=== PATIENT | female | born 2000 | race Caucasian/White ===

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

== ENCOUNTER 2022-03-09 09:54 | Emergency (ER) | payer BC, MEDICAID, SELFPAY ==
[2022-03-09 10:01] VITALS: BP 133/70; PULSE 94; RESP 18; TEMP 36.8; O2SAT 98; BMI 29.0
--- NOTE | 2022-03-09 10:58 | CTR_ITS ---
PROCEDURE INFORMATION: Exam: CT Head Without Contrast Exam date and time: 03/09/2022 11:27 AM Age: 21 years old Clinical indication: Visual disturbance; Additional info: Right sided face and extremities numbness and weakness TECHNIQUE: Imaging protocol: Computed tomography of the head without contrast. Radiation optimization: All CT scans at this facility use at least one of these dose optimization techniques: automated exposure control; mA and/or kV adjustment per patient size (includes targeted exams where dose is matched to clinical indication); or iterative reconstruction. COMPARISON: CT head wo con* [id number] 05/28/2019 11:18 PM RADIATION DOSE METRICS: Total DLP (mGy-cm): 789.73 FINDINGS: Brain: No CT evidence of acute intracranial hemorrhage or acute territorial infarction. No significant mass effect or midline shift. Basal cisterns patent. Cerebral ventricles: Normal in size and configuration. Paranasal sinuses: Minimal ethmoid mucosal thickening. No air-fluid levels. Mastoid air cells: Grossly unremarkable. Bones/joints: No acute osseous abnormality. Soft tissues: Grossly unremarkable. CT/CT head wo con* [id number]: 1[address] No CT evidence of acute intracranial pathology. 2. Additional findings, as above.
--- NOTE | 2022-03-09 10:58 | XR_ITS ---
WS: [id number] Portable AP upright chest, 03/09/2022 Clinical Data: chest tightness on right side w/ inspiration Comparison: PA and lateral chest, 11/04/2008. Findings: No nodules, masses or effusions are seen. The heart is normal. The pulmonary vascularity is not increased. No pneumonia or pneumothorax is seen. XR/XR chest 1V portable [id number] Impression: Negative chest.
--- NOTE | 2022-03-09 10:58 | ECG_ITS ---
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 Measurements Intervals [place] Rate: 59 P: 14 TN: 142 QRS: 20 QRSD: 120 T: 21 QT: 404 QTc: 401 Interpretive Statements SINUS BRADYCARDIA WITH SINUS ARRHYTHMIA POSSIBLE RIGHT VENTRICULAR CONDUCTION DELAY [RSR (QR) IN V1/V2] No previous ECG available for comparison Electronically Signed On 03-09-2022 18:18:27 CDT by Cristal Lee M.D. [email or web address].[facility] [email or web address] regional medical [email or web address]'s hospital [id number]
--- NOTE | 2022-03-09 11:05 | W.ED.WEAKNES ---
HPI - Weakness General: Chief complaint: Weakness Stated complaint: RT side numbness and head foggyness Time Seen by Provider: 03/09/22 10:10 History of Present Illness: Patient is a 21-year-old female comes to the ED with right sided numbness/weakness and mental fog. Past medical history of PCOS, anxiety and had a seriousconcussion 3 years ago. symptoms started around 9 AM on Saturday morning. She is currently a little over 48 hours into her onset of symptoms. She initially noticed the right side of her face feeling a little numb and then later she developed a mild headache in the back of her head. She then started noticing her right arm had some numbness to it along with weakness in her right leg and right arm. Symptoms have continued and patient still feeling symptoms here in the ED. She also reports having some mental fog which she describes as forgetfulness or occasional mild confusion (example?processing verbal instructions). Endorses a little bit of dizziness. She does states she has had a decreased food and fluid intake over the past 2 days since onset of symptoms because she is been anxious about her health. Associated symptoms: Reports confusion and headache(s) (Resolved before coming to ED); Denies chest pain, chills, dysuria, fever(s), nausea or vomiting Review of Systems Const: Denies: fever(s), chills or fatigue Eyes: Denies: change in vision or eye discomfort ENMT: Denies: throat pain, odynophagia, nasal discharge or nasal congestion Card: Denies: chest pain, palpitations, edema, swelling of feet/ankles, dyspnea on exertion or orthopnea Resp: Denies: dyspnea, productive cough or non-productive cough GI: Denies: abdominal pain, nausea, vomiting, diarrhea, constipation or hematochezia : Denies: flank pain, dysuria or hematuria Musc: Denies: neck pain, back pain or extremity swelling Skin/Breast: Denies: rash or new lesions Neuro: Reports: headache(s) (Resolved before coming to ED), numbness in extremities (Right upper and lower extremities), weakness in extremities (Right upper and lower extremities), dizziness (Episodes) and confusion PFS ED PFSH: Medical History Acute anxiety Depression Migraine with aura No pertinent past medical history neghx: htn,dm,thyroid,dvt/pe PCP: Dr. Cunha PCOS (polycystic ovarian syndrome) Surgical History History of tonsillectomy Hx laparoscopic cholecystectomy [place] teeth extracted Family History Mother PCOS (polycystic ovarian syndrome) Thyroid disease Father No problems noted. Brother No problems noted. Grandmother Uterine cancer Maternal--dx age unknown Diabetes Maternal Hypertension Maternal PCOS (polycystic ovarian syndrome) Maternal Grandfather Hypertension Maternal Denies family history of Colon cancer Ovarian cancer Breast cancer Female Reproductive History: Date of last menstrual period: 02/23/22 Physical Exam Narrative: EXAM NARRATIVE: Patient is a happy and healthy 21-year-old female that appears in no acute distress or pain. Const: COMMON NORMALS: no acute distress, patient oriented x3, healthy appearing and alert GENERAL APPEARANCE: cooperative and comfortable HENMT: COMMON NORMALS: normocephalic HEAD & SCALP: normocephalic MOUTH: Normal oral and palatal mucosa present THROAT: posterior oropharynx normal and uvula midline Neck/C-Spine: COMMON NORMALS: supple GENERAL: Yes normal visual inspection Resp: COMMON NORMALS: normal respiratory effort, No retractions, No use of accessory muscles and clear to auscultation bilaterally AUSCULTATION: clear to auscultation bilaterally Cardio: COMMON NORMALS: regular rate, regular rhythm, S1 normal heart sound present, S2 normal heart sound present, No gallops present (Cardio), No clicks present (Cardio), No murmurs present (Cardio) and Peripheral pulses 2+ throughout RATE: regular rate RHYTHM: regular rhythm HEART SOUNDS: S1 normal heart sound present and S2 normal heart sound present PERIPHERAL PULSES: Peripheral pulses 2+ throughout GI: COMMON NORMALS: Normal to inspection, nondistended, normoactive bowel sounds present, Soft to palpation, non-tender and no masses PALPATION: Yes Soft to palpation : COMMON NORMALS: Yes no CVA tenderness BLADDER/KIDNEY EXAM: Yes no CVA tenderness Back/Pelvis: COMMON NORMALS: no CVA tenderness Extremity: COMMON NORMALS: normal to inspection Neuro: COMMON NORMALS: patient oriented x3, CN's II-XII intact bilaterally, moves all extremities, no focal motor deficits and no sensory deficits noted SENSORIUM/ORIENTATION: Yes alert COORDINATION/BALANCE: [id number] test normal SPEECH: speech normal GAIT: Yes Normal gait present SENSORY EXAM: Yes extremities (intact) MOTOR EXAM: 5/5 motor strength present throughout and Pronator motor function not present COORDINATION: [id number] test normal Skin: GENERAL SKIN EXAM: dry skin Course Vital Signs: Vital signs: Vital Signs Temperature 98.2 F 03/09/22 10:01 Pulse Rate 70 03/09/22 13:56 Respiratory Rate 14 03/09/22 13:56 Blood Pressure 115/61 03/09/22 13:56 Pulse Oximetry 100 03/09/22 13:56 MDM - Weakness Medical Decision Making Patient is a 21-year-old female comes to the ED with right-sided tingling/numbness in face, arm and leg. She reports that her right leg and right arm feel weak. Patient endorses having anxiety and says she has been stressed a lot about her symptoms. Symptoms started approximately a little over 48 hours ago. Vitals are stable. Patient is a happy and healthy 21 female appears in no acute distress pain. Her neuro exam is completely normal rest of exam is benign. Labs were unremarkable. EKG showed no acute findings. Chest x-ray showed no acute findings. CT of head showed no acute findings. Patient appears healthy and stable for discharge home. She was told to follow-up with her primary care doctor within the next week for reevaluation. Return to ED precautions given. Patient stood agree with plan. Lab Data I reviewed the patient's lab results. : 03/09/22 11:11 03/09/22 11:11 Radiology Impressions Chest X-Ray 03/09/22 10:58 Impression: Negative chest. Head CT 03/09/22 10:58 IMPRESSION: 1. No CT evidence of acute intracranial pathology. 2. Additional findings, as above. Laboratory Results WBC 7.0 10^3/uL (4.5-13.0) 03/09/22 11:11 RBC 4.67 10^6/uL (4.1-5.3) 03/09/22 11:11 Hgb 13.7 g/dL (11.5-15.3) 03/09/22 11:11 Hct 41.5 % (37.0-47.0) 03/09/22 11:11 MCV 88.9 fl (81-99) 03/09/22 11:11 MCH 29.3 pg (28.0-34.0) 03/09/22 11:11 MCHC 33.0 g/dL (30.0-36.0) 03/09/22 11:11 RDW 12.2 % (12.1-15.1) 03/09/22 11:11 Plt Count 293 10^3/cmm (130-400) 03/09/22 11:11 MPV 10.3 fL (7.4-10.4) 03/09/22 11:11 Neut % (Auto) 65.4 % 03/09/22 11:11 Lymph % (Auto) 24.3 % 03/09/22 11:11 [place] % (Auto) 8.9 % 03/09/22 11:11 Eos % (Auto) 0.7 % 03/09/22 11:11 Baso % (Auto) 0.4 % 03/09/22 11:11 Neut # (Auto) 4.55 10^3/uL (1.8-8.0) 03/09/22 11:11 Lymph # (Auto) 1.7 10^3/uL (1.5-6.5) 03/09/22 11:11 [place] # (Auto) 0.6 10^3/uL (0.2-0.9) 03/09/22 11:11 Eos # (Auto) 0.1 10^3/uL (0.0-0.8) 03/09/22 11:11 Baso # (Auto) 0.0 10^3/uL (0.0-0.1) 03/09/22 11:11 Nucleated RBC % (auto) 0 % 03/09/22 11:11 Nucleated RBCs # 0.0 /100WBC 03/09/22 11:11 Sodium 139 mmol/L (136-145) 03/09/22 11:11 Potassium 4.0 mmol/L (3.5-5.1) 03/09/22 11:11 Chloride 108 mmol/L (98-107) H 03/09/22 11:11 Carbon Dioxide 20 mmol/L (22-29) L 03/09/22 11:11 Anion Gap 15.0 (5-19) 03/09/22 11:11 BUN 12 mg/dL (6-20) 03/09/22 11:11 Creatinine 0.8 mg/dL (0.5-0.9) 03/09/22 11:11 GFR Calculation 92.4 mL/min (90-130) 03/09/22 11:11 Glucose 108 mg/dL (65-115) 03/09/22 11:11 Calculated Osmolality 288 mOsm/kg (285-295) 03/09/22 11:11 Calcium 8.9 mg/dL (8.5-10.5) 03/09/22 11:11 Total Bilirubin 0.2 mg/dL (0.15-1.2) 03/09/22 11:11 AST 12 U/L (0-32) 03/09/22 11:11 ALT 18 U/L (0-33) 03/09/22 11:11 Alkaline Phosphatase 96 IU/L (35-105) 03/09/22 11:11 Total Protein 6.9 g/dL (6.6-8.7) 03/09/22 11:11 Albumin 4.6 g/dL (3.5-5.2) 03/09/22 11:11 Globulin 2.3 g/dL (1.3-4.6) 03/09/22 11:11 HCG, Qual Negative (Negative) 03/09/22 11:11 Urine Color Yellow (Yellow) 03/09/22 10:37 Urine Appearance Clear (CLEAR) 03/09/22 10:37 Urine pH 6 (5-7) 03/09/22 10:37 Ur Specific [place] 1.015 (1.005-1.030) 03/09/22 10:37 Urine Protein Neg (Negative) 03/09/22 10:37 Urine Glucose (UA) Norm (Normal) 03/09/22 10:37 Urine Ketones Negative (Negative) 03/09/22 10:37 Urine Blood 2+ (Negative) H 03/09/22 10:37 Urine Nitrate Negative (Negative) 03/09/22 10:37 Urine Bilirubin Neg (Negative) 03/09/22 10:37 Urine Urobilinogen Norm mg/dL (Negative) 03/09/22 10:37 Ur Leukocyte Esterase Negative (Negative) 03/09/22 10:37 Urine RBC 0-4 /hpf (0-2) H 03/09/22 10:37 Urine WBC 0-4 /hpf (0-5) H 03/09/22 10:37 Ur Squamous Epith Cells 0-4 /hpf (0-5) H 03/09/22 10:37 Amorphous Sediment Not Reportable 03/09/22 10:37 Urine Bacteria 1+ /hpf (NONE) H 03/09/22 10:37 EKG Data EKG 1: Interpretation: [place] [address] Electrocardiograph Report Signed Patient: Aysha Mcgee Unit #: [id number] : 2000 Age/Sex: 21 / F ADM Date: 03/09/22 Loc: ER Room/Bed: Attending Dr: Ordering Provider/Ordering MD: Quintin Luong Date of Service: 03/09/22 Procedure(s): ECG 12 lead EKG Accession Number(s): [id number] Report Number: [id number] ? [facility] ? Test Date:? ? 2022-03-09 Pat Name: ? ? Aysha Mcgee ? Department: ? Patient ID: ? [id number] ? Room: ? Gender: ? ? ? Female ? [employer]: ? :? 2000 ? Requested By: Quintin Luong Order Number: [id number]? Reading : ? Cristal Lee M.D. ? Measurements Intervals? [place]? Rate: ? 59 ? P:? 14 FL: ? 142? QRS:? 20 QRSD: ? 120? T:? 21 QT: ? 404? QTc:? 401? Interpretive Statements SINUS BRADYCARDIA WITH SINUS ARRHYTHMIA POSSIBLE RIGHT VENTRICULAR CONDUCTION DELAY? [RSR (QR) IN V1/V2] No previous ECG available for comparison Electronically Signed On 03-09-2022 18:18:27 CDT by Cristal Lee M.D. [email or web address] Dictated By: Cristal Lee MD Signed By: Cristal Lee MD Signed Date/Time: 03/09/2022 DD/ [id number] Discharge Plan Discharge Patient Disposition: Home Clinical Impression: Numbness, Normal neurological exam Condition: Stable Prescriptions: No Action spironolactone 25 mg tablet 25 mg PO QAM 0RF ibuprofen 800 mg tablet 800 mg PO Q8H PRN (Reason: pain) Qty: 30 1RF Vitamin C 500 mg Tablet 500 mg PO DAILY 0RF Vitamin D3 1 cap PO DAILY 0RF Myra 0.35 mg tablet 0.35 mg PO QAM 0RF Discharge Orders: Discharge ED (Routine); Ordered 03/09/22 Ordered By: Quintin Luong Referrals: Ana Cunha PA [Primary Care Provider] - Discharge Diet: Regular Discharge Activity: Increase activity as tolerated Patient Instructions: Numbness and Tingling Activity Restrictions/Additional Instructions: Follow-up with medical provider in the next 7 days for reevaluation. Continue taking all home medications as previously prescribed. Return to the ER or your medical provider if condition worsens. Please read and understand discharge instructions. Thank you for choosing [employer] [facility] [facility] for your healthcare needs today. Please realize this is an emergency room and that we are providing you with a medical screening exam and this may not be complete and all inclusive of all the testing and or work up that you may need to determine your ailment or severity of your illness. It is very important that you follow up as instructed or that you return to the Emergency Department should you have concerns or if your condition changes or worsens in any way. 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
[2022-03-09 11:07] VITALS: BP 119/70; PULSE 74; RESP 14; O2SAT 97
[2022-03-09 11:17] LABS: Basophils % 0.4 %; Eosinophils # 0.1 10^3/uL (0.0-0.8); Eosinophils % 0.7 %; Hematocrit 41.5 % (37.0-47.0); Hemoglobin 13.7 g/dL (11.5-15.3); Lymphocytes # 1.7 10^3/uL (1.5-6.5); Lymphocytes % 24.3 %; Mean Corpuscular Hemoglobin 29.3 pg (28.0-34.0); Mean Corpuscular Volume 88.9 fl (81-99); Mean Platelet Volume 10.3 fL (7.4-10.4); Monocytes # 0.6 10^3/uL (0.2-0.9); Monocytes % 8.9 %; Neutrophils # 4.55 10^3/uL (1.8-8.0); Neutrophils % 65.4 %; Nucleated Red Blood Cells % 0 %; Platelet Count 293 10^3/cmm (130-400); Red Blood Count 4.67 10^6/uL (4.1-5.3); Red Cell Distribution Width 12.2 % (12.1-15.1)
[2022-03-09 11:34] LABS: Add Urine Microscopic? YES; Bilirubin Urine Neg (Negative); Blood Urine 2+ (Negative); Glucose Urine UA Norm (Normal); Ketones Urine Negative (Negative); Leukocyte Esterase Urine Negative (Negative); Nitrate Urine Negative (Negative); Protein Urine Neg (Negative); Specific Gravity, Urine 1.015 (1.005-1.030); Urine Appearance Clear (CLEAR); Urine Color Yellow (Yellow); Urobilinogen Urine Norm (Negative); pH Urine 6 (5-7)
[2022-03-09 11:35] LABS: Add Urine Culture? No; Bacteria Urine 1+ /hpf; RBC Urine 0-4 /hpf (0-2); Squamous Epithelial Cell Urine 0-4 /hpf (0-5); WBC Urine 0-4 /hpf (0-5)
[2022-03-09 11:43] LABS: Alanine Aminotransferase 18 U/L (0-33); Albumin Level 4.6 g/dL (3.5-5.2); Alkaline Phosphatase 96 IU/L (35-105); Aspartate Amino Transferase 12 U/L (0-32); Blood Urea Nitrogen 12 mg/dL (6-20); Calcium 8.9 mg/dL (8.5-10.5); Carbon Dioxide 20 mmol/L (22-29); Chloride 108 mmol/L (98-107); Globulin 2.3 g/dL (1.3-4.6); Glomerular Filtration Rate 92.4 mL/min (90-130); Glucose 108 mg/dL (65-115); Osmolality Calculated 288 mOsm/kg (285-295); Sodium 139 mmol/L (136-145); Total Bilirubin 0.2 mg/dL (0.15-1.2); Total Protein 6.9 g/dL (6.6-8.7)
[2022-03-09 11:48] LABS: HCG, Serum Qual Negative (Negative)
[2022-03-09 13:56] VITALS: BP 115/61; PULSE 70; RESP 14; O2SAT 100
== END 2022-03-09 13:05 | disposition home or self-care (01) ==
PROVIDERS: Emergency Provider Physician Assistant; PCP Physician Assistant
DX: R20.0 Anesthesia of skin (principal); R53.1 Weakness; F41.9 Anxiety disorder, unspecified
CPT/HCPCS: 70450; 71045; 80053; 81001; 84703; 85025; 93005; 99283

== ENCOUNTER → 2023-11-29 10:15 | Outpatient (BNVA) | payer MEDICAID, SELFPAY | PROVIDERS: PCP Physician Assistant; Visit Provider Nurse Practitioner Women's Health | DX: E28.2 Polycystic ovarian syndrome (principal); N92.6 Irregular menstruation, unspecified | CPT/HCPCS: 82306; 83036; 84146; 84402; 84439; 84443; 84481; 84702 ==

== ENCOUNTER 2024-02-12 11:59 | Outpatient (CLI) | payer MEDICAID, SELFPAY | END 2024-02-12 12:00 | disposition home or self-care (01) | LOC: LAB 12:01 | PROVIDERS: PCP Physician Assistant; Visit Provider Nurse Practitioner Women's Health | DX: N92.6 Irregular menstruation, unspecified (principal) | CPT/HCPCS: 36415; 84702 ==

== ENCOUNTER → 2024-06-12 15:08 | Outpatient (BNVA) | payer OTHER, SELFPAY | PROVIDERS: PCP Physician Assistant; Visit Provider Nurse Practitioner Women's Health | DX: E28.2 Polycystic ovarian syndrome (principal); E66.9 Obesity, unspecified | CPT/HCPCS: 84144 ==

== ENCOUNTER → 2024-07-20 11:10 | Outpatient (BNVA) | payer OTHER, SELFPAY | PROVIDERS: PCP Physician Assistant; Visit Provider Nurse Practitioner Women's Health | DX: E28.2 Polycystic ovarian syndrome (principal); N88.8 Other specified noninflammatory disorders of cervix uteri; R93.89 Abnormal findings on diagnostic imaging of other specified body structures; N92.6 Irregular menstruation, unspecified | CPT/HCPCS: 76830 ==

== ENCOUNTER 2025-02-15 12:05 | Outpatient (CLI) | payer OTHER, SELFPAY ==
[2025-02-15 14:18] LABS: 25 Hydroxy Vitamin D 21 ng/mL (30-100)
== END 2025-02-15 12:06 | disposition home or self-care (01) ==
LOC: LAB 12:07
PROVIDERS: PCP Nurse Practitioner Family; Visit Provider Internal Medicine
DX: E28.2 Polycystic ovarian syndrome (principal); E55.9 Vitamin D deficiency, unspecified
CPT/HCPCS: 36415; 82306